=== PATIENT | male | born 2000 | race Caucasian/White ===

== ENCOUNTER 2018-01-30 19:46 | Observation (INO) | payer BC ==
[2018-01-30] MEDS ORDERED: ONDANSETRON HCL IV 4 MG/2 ML VIAL IVP ONE ×2 (21:02→22:20)
[2018-01-30] MEDS ORDERED: 0.9 % SODIUM CHLORIDE 1,000 ML BAG IV ONE (21:02)
[2018-01-30] MEDS ORDERED: KETOROLAC 30 MG/ML VIAL IVP ONE (21:02)
[2018-01-30 21:04] LABS: HEMATOCRIT 44.9 % (42.0-52.0); HEMOGLOBIN 15.4 gm/dl (14.0-18.0); MEAN CELL VOLUME 86.2 fl (81-97); MEAN CORPUSCULAR HEMOGLOBIN 29.6 pg (27-33); MEAN CORPUSCULAR HGB CONC 34.3 g/dl (32-36); MEAN PLATELET VOLUME 9.7 fl (7.4-10.4); PLATELET COUNT 352 K/uL (130-400); RED BLOOD COUNT 5.21 M/uL (4.40-5.70); RED CELL DISTRIBUTION WIDTH 13.3 % (11.5-14.5); URINE APPEARANCE CLEAR; URINE BILIRUBIN NEGATIVE (NEGATIVE); URINE BLOOD NEGATIVE (NEGATIVE); URINE COLOR YELLOW; URINE GLUCOSE (UA) NEGATIVE (NEGATIVE); URINE KETONE NEGATIVE (NEGATIVE); URINE LEUKOCYTE ESTERASE NEGATIVE (NEGATIVE); URINE NITRITE NEGATIVE (NEGATIVE); URINE PROTEIN NEGATIVE (NEGATIVE); URINE UROBILINOGEN 0.2 E.U./dL (0.20 - 1.00); WHITE BLOOD COUNT W/O DIFF 19.3 K/uL (4.2-12.2)
--- NOTE | 2018-01-30 21:06 | Emergency Department Record ---
History of Present Illness - General Chief Complaint: Abdominal Pain Stated Complaint: LOWER RT ABDOMINAL PAIN Time Seen by Provider: 01/30/18 21:00 Source: Patient Mode of Arrival: Ambulatory Limitations: No limitations - History of Present Illness Initial Comments: The patient is here due to the acute onset of RLQ AP which started about 4 hours ago. The pain was mild initially but now is sharp and crampy and is associated with nausea but no vomiting. The patient denies any hx of similar issues or problems. He denies any back pain, dysuria, fever, or chills. MD Complaint: Abdominal pain Onset/Timin -: Hour(s) Location: Diffuse, RLQ Radiation: None Migration to: No migration Severity: Moderate Severity scale (1-10): 8 Quality: Sharp Consistency: Constant Improves With: Nothing Worsens With: Movement Associated Symptoms: Denies other symptoms Treatments Prior to Arrival: Antacids - Related Data Home Medications Medication Instructions Recorded Confirmed Last Taken Cyproheptadine HCl 8 mg PO BID 01/30/18 01/30/18 Unknown Escitalopram Oxalate [Lexapro] 20 mg PO DAILY 01/30/18 01/30/18 Unknown Allergies Allergy/AdvReac Type Severity Reaction Status Date / Time Sulfa (Sulfonamide Allergy HIVES Verified 01/30/18 20:43 Antibiotics) Travel Screening - Travel/Exposure Within Last 30 Days Have you traveled within the last 30 days?: No - Travel/Exposure Within Last Year Have you traveled outside the [place] in the last year?: No - Additonal Travel Details Have you been exposed to anyone with a communicable illness?: No - Travel Symptoms Symptom Screening: None Review of Systems Constitutional: Denies: Chills, Fever Eyes: Denies: Eye discharge ENT: Denies: Congestion Respiratory: Denies: Cough, Dyspnea Past Medical History - SOCIAL HISTORY Smoking Status: Never smoker Alcohol Use: None Drug Use: None - RESPIRATORY Hx Respiratory Disorders: Yes Hx Asthma: Yes - CARDIOVASCULAR Hx Cardio Disorders: No - NEURO Hx Neuro Disorders: No - GI Hx GI Disorders: No - Hx Genitourinary Disorders: No - ENDOCRINE Hx Endocrine Disorders: No - MUSCULOSKELETAL Hx Musculoskeletal Disorders: No - PSYCH Hx Psych Problems: Yes Hx Anxiety: Yes - HEMATOLOGY/ONCOLOGY Hx Hematology/Oncology Disorders: No Family Medical History Any Significant Family History?: No Physical Exam - General General Appearance: Alert, Oriented x3, Cooperative, No acute distress - Head Head exam: Atraumatic, Normocephalic, Normal inspection - Eye Eye exam: Normal appearance, PERRL - Neck Neck exam: Normal inspection, Full ROM. negative: Tenderness - Respiratory Respiratory exam: Normal lung sounds bilaterally. negative: Respiratory distress - Cardiovascular Cardiovascular Exam: Regular rate, Normal rhythm, Normal heart sounds - GI/Abdominal GI/Abdominal exam: Soft, Normal bowel sounds, Guarding, Tenderness (There is significant RLQ tenderness with guarding.). negative: Mass, Rebound, Rigid - Extremities Extremities exam: Normal inspection, Full ROM, Normal capillary refill. negative: Tenderness - Neurological Neurological exam: Alert. negative: Motor sensory deficit Course Vital Signs 01/30/18 20:35 Temperature 97.8 F Pulse Rate 67 Respiratory 20 Rate Blood Pressure 108/73 Pulse Ox 100 - Reevaluation(s) Reevaluation #1: The patient is doing a lot better but does still have the pain. I did explain to him that it appears he has early appendicitis. Due to that fact we will admit him here overnight to Dr. He for surgery tomorrow. I did discuss the case with Dr. He and he does agree to the plan. 01/30/18 21:52 Medical Decision Making - Data Complexity MDM Data: Labs Ordered and/or Reviewed, X-Ray Ordered and/or Reviewed - Lab Data Result diagrams: 01/30/18 21:01 01/30/18 21:01 - Radiology Data Radiology results: Report reviewed (Abd CT: Appendix borderline enlarged with multiple appendicoliths present.) Disposition Disposition: Admit Clinical Impression: Appendicitis Qualifiers: Appendicitis type: acute appendicitis Acute appendicitis type: unspecified acute appendicitis type Qualified Code(s): K35.80 - Unspecified acute appendicitis Disposition: Still a Patient at [facility] Decision to Admit: Admit from ER Decision to Admit Date: 01/30/18 Decision to Admit Time: 21:54 Accepting Physician: Ying Time Discussed w/Accepting Physician: 21:54 Condition: (2) Stable Time of Disposition: 21:54 Quality - Quality Measures Quality Measures: N/A - Blood Pressure Screening View Details: Yes Does Patient Have Any of the Following: No Blood Pressure Classification: Pre-Hypertensive BP Reading Systolic Measurement: 120 Diastolic Measurement: 74 Screening for High Blood Pressure: < Pre-Hypertensive BP, F/U Documented > [ [id number]] Pre-Hypertensive Follow-up Interventions: Referral to alternative/primary care provider.
[2018-01-30 21:12] LABS: BLOOD UREA NITROGEN 18 mg/dL (6-20); CREATININE 0.9 mg/dL (0.7-1.2)
[2018-01-30 21:15] LABS: GLUCOSE,RANDOM 113 mg/dL (74-109)
[2018-01-30] MEDS ORDERED: ERTAPENEM SODIUM 1 G in 0.9 % SODIUM CHLORIDE 100ML 100 ML IVPB ONE (21:49)
[2018-01-30] MEDS ORDERED: SUGAMMADEX SODIUM 200 MG/2 ML VIAL IV ONE (22:20)
[2018-01-30] MEDS ORDERED: FENTANYL PF 100MCG/2ML VIAL IV ONE ×2 (22:20)
[2018-01-30] MEDS ORDERED: LIDOCAINE 2% MDV (20MG/ML) 20ML VIAL IV ONE (22:20)
[2018-01-30] MEDS ORDERED: ACETAMINOPHEN 1,000 MG/100 ML BTL IV ONE (22:20)
[2018-01-30] MEDS ORDERED: SCOPOLAMINE 1 PATCH TDSY TD ONE (22:20)
[2018-01-30] MEDS ORDERED: METOCLOPRAMIDE 10 MG TABLET PO ONE (22:20)
[2018-01-30] MEDS ORDERED: ROCURONIUM BROMIDE 50MG/5ML VIAL IV ONE (22:20)
[2018-01-30] MEDS ORDERED: PROPOFOL 10 MG/ML VIAL IV ONE (22:20)
[2018-01-30] MEDS ORDERED: DEXAMETHASONE 4 MG/ML 1ML VIAL IVP ONE (22:20)
[2018-01-30] MEDS ORDERED: MIDAZOLAM HCL 2MG/2ML VIAL IV ONE (22:20)
[2018-01-30] MEDS ORDERED: MECLIZINE 25 MG TABLET PO ONE (22:20)
[2018-01-30] MEDS ORDERED: HYDROCORTISONE 100MG/VIAL IVP ONE (22:20)
[2018-01-30] MEDS ORDERED: BUPIVACAINE 0.25% W/EPI MPF 30ML VIAL IVP ONE (22:20)
[2018-01-30] MEDS ORDERED: *PACU ONLY* KETAMINE HCL 10 MG/ML (20ML) VIAL IV ONE (22:20)
[2018-01-30] MEDS ORDERED: ALBUTEROL SULFATE (0.083%) 2.5 MG/3 ML NEB INH ONE (22:20)
[2018-01-30] MEDS ORDERED: FAMOTIDINE 20MG TABLET PO ONE (22:20)
[2018-01-30] MEDS ORDERED: SEVOFLURANE 250 ML INH ONE (22:20)
[2018-01-30] MEDS ORDERED: 0.9 % SODIUM CHLORIDE 1000ML 1,000 ML IV PRN (22:21)
[2018-01-30] MEDS ORDERED: ONDANSETRON HCL IV 4 MG/2 ML VIAL IVP PRN (22:21)
[2018-01-30] MEDS: HYDROMORPHONE HCL 2 MG/ML VIAL IV PRN (23:56)
[2018-01-31] MEDS: HYDROMORPHONE HCL 2 MG/ML VIAL IV PRN (04:04)
--- NOTE | 2018-01-31 07:24 | CT SCAN REPORT ---
EXAM: CT OF THE ABDOMEN AND PELVIS WITHOUT CONTRAST HISTORY: LOWER RIGHT ABDOMINAL PAIN FOR THREE TO FOUR HOURS. TECHNIQUE: Routine noncontrast CT images of the abdomen and pelvis were obtained. FINDINGS: The visualized lung bases are unremarkable. The liver, gallbladder, pancreas, spleen and adrenal glands have a normal noncontrast appearance. No renal or ureteral calculi or hydronephrosis. Please note portions of the ureters are obscured by overlapping structures. The bowel is normal in caliber. The appendix is seen. It demonstrates high densities in the lumen most consistent with multiple appendicoliths. Appendix is borderline prominent measuring 7 mm in caliber though no surrounding inflammatory change. Early acute appendicitis should be considered in the appropriate clinical setting. The bladder is unremarkable. No abdominal or pelvic lymphadenopathy. No free air or free fluid. The abdominal wall soft tissues are unremarkable. No acute osseous abnormality. IMPRESSION: THE APPENDIX IS BORDERLINE ENLARGED MEASURING 7 MM IN CALIBER AND DEMONSTRATES APPENDICOLITHS. WHILE THERE IS NO SURROUNDING INFLAMMATORY CHANGE, IT WOULD BE DIFFICULT TO COMPLETELY EXCLUDE EARLY ACUTE APPENDICITIS IN THE APPROPRIATE CLINICAL SETTING. JOB NUMBER: [id number] [facility]
[2018-01-31] MEDS ORDERED: METOCLOPRAMIDE HCL 10 MG/2 ML VIAL IVP PRN (13:00)
[2018-01-31] MEDS ORDERED: MORPHINE SULFATE 4MG/ML PREFILLED SYRINGE IVP PRN (13:00)
[2018-01-31] MEDS: HYDROCODONE/APAP 5/325MG TABLET PO PRN ×3 (13:25→19:50)
[2018-01-31] MEDS: PANTOPRAZOLE SODIUM IV 40 MG VIAL IV SCH (13:29)
[2018-01-31] MEDS: CEFTRIAXONE SODIUM 1 GM in 0.9 % SODIUM CHLORIDE 100ML 100 ML IVPB SCH (17:58)
[2018-01-31] MEDS ORDERED: AZITHROMYCIN 500 MG TABLET PO SCH (18:00)
[2018-01-31] MEDS ORDERED: IPRATROPIUM/ALBUTEROL (0.5MG/3MG) NEB INH PRN (21:50)
[2018-01-31] MEDS: CYPROHEPTADINE 4 MG PO SCH (21:52)
[2018-01-31] MEDS ORDERED: TOPIRAMATE 25MG TABLET PO SCH (22:00)
[2018-02-01] MEDS: HYDROCODONE/APAP 5/325MG TABLET PO PRN ×3 (01:19→10:47)
[2018-02-01] MEDS: CEFTRIAXONE SODIUM 1 GM in 0.9 % SODIUM CHLORIDE 100ML 100 ML IVPB SCH (06:10)
[2018-02-01 06:26] LABS: BASO % 0.1 % (0-6); EOS % 0.4 % (0-6); HEMATOCRIT 42.8 % (42.0-52.0); HEMOGLOBIN 14.5 gm/dl (14.0-18.0); LYMPH % 24.5 % (16-45); MEAN CELL VOLUME 86.6 fl (81-97); MEAN CORPUSCULAR HEMOGLOBIN 29.4 pg (27-33); MEAN CORPUSCULAR HGB CONC 33.9 g/dl (32-36); MEAN PLATELET VOLUME 9.6 fl (7.4-10.4); PLATELET COUNT 316 K/uL (130-400); RED BLOOD COUNT 4.94 M/uL (4.40-5.70); RED CELL DISTRIBUTION WIDTH 13.4 % (11.5-14.5); WHITE BLOOD COUNT W/O DIFF 11.7 K/uL (4.2-12.2)
[2018-02-01 06:38] LABS: BLOOD UREA NITROGEN 8 mg/dL (6-20); CREATININE 0.8 mg/dL (0.7-1.2); GLUCOSE,RANDOM 103 mg/dL (74-109)
--- NOTE | 2018-02-01 07:27 | RADIOLOGY REPORT ---
EXAM: CHEST, TWO VIEWS HISTORY: CHEST PAIN. TECHNIQUE: Frontal and lateral views of the chest were obtained. Comparison: None. FINDINGS: The heart size is normal. Bilateral perihilar air space opacities worrisome for pneumonia. No discreet pneumothorax. The patient is status post recent appendectomy. Trace of free air under the right hemidiaphragm is likely postoperative in nature. IMPRESSION: 1. BILATERAL PERIHILAR PNEUMONIA. 2. MINIMAL RESIDUAL FREE AIR UNDER RIGHT HEMIDIAPHRAGM. JOB NUMBER: [id number] [facility]
[2018-02-01] MEDS: PANTOPRAZOLE SODIUM IV 40 MG VIAL IV SCH (09:50)
[2018-02-01] MEDS ORDERED: ESCITALOPRAM 10 MG TABLET PO SCH (10:00)
--- NOTE | 2018-02-01 10:01 | Operative Note ---
DATE OF SURGERY: 01/31/2018 Surgeon: Matty He DO PREOPERATIVE DIAGNOSIS: Acute appendicitis. POSTOPERATIVE DIAGNOSIS: Acute appendicitis. OPERATION: Laparoscopic appendectomy. Indication: The patient is a 17-year-old male who came to the hospital last night with abdominal pain. This did settle in his right lower quadrant. CT scan did show findings consistent with acute appendicitis. His clinically exam fit the same. We did discuss appendectomy. Risks, benefits, and alternatives were discussed. Risks include bleeding, infection, postop abscess formation. He understood this fully. Thereafter, consent was signed and questions answered. PROCEDURE: He was taken to the operating room and placed in the supine position. General anesthesia was administered per department of anesthesia. The patient's abdomen was prepped in the usual fashion. His left arm was tucked to the side. At this time, adequate timeout was performed. He did receive preoperative antibiotics as well as DVT prophylaxis. The infraumbilical region was then anesthetized with a total of 5 mL of 0.25% Sensorcaine with epinephrine. A 2 cm infraumbilical incision was made. This was carried down to the anterior rectus fascia. This was incised. Luis Manuel clamps were placed on the fascial edges and brought up into the wound. Stay sutures of 0 Vicryl were placed. Posterior rectus sheath was identified and incised. The peritoneal cavity was entered bluntly. At this time, a 10 mm blunt Josué port was placed. Adequate pneumoperitoneum established. Under direct visualization, additional 5 mm right subcostal and 5 mm suprapubic ports were placed. The appendix was located in the right mid abdomen. It was noted to be dilated and inflamed consistent with acute appendicitis. The patient also had some purulent fluid in the pelvis. There was no evidence of rupture, abscess, or other. At this time, the appendix was lifted anteriorly. The mesoappendix was taken down serially with the Teofilo harmonic. Once the appendiceal base was reached, it was transected with an Endo-MARQUEZ stapling device. This was then placed in the EndoCatch bag and brought out infraumbilically. The right lower quadrant and pelvis were then irrigated with approximately 500 mL of sterile saline. There was no bleeding noted. Staple line looks great. All the purulent fluid was suctioned free. There was really no other pathology I could see after examining the small and large bowel, liver, gallbladder, and stomach. At this time, the patient was leveled out and pneumoperitoneum was released. All ports were removed. The fascia was closed with 0 Vicryl in a [id number] fashion. The skin of all 3 ports was closed with 4-0 Vicryl. He was taken to the recovery room in satisfactory condition. FINDINGS ON SURGERY: Acute appendicitis. CC: Rodrigo JUAREZ
[2018-02-01] MEDS: CYPROHEPTADINE 4 MG PO SCH (10:17)
--- NOTE | 2018-02-01 10:31 | Consult ---
Consult Order Detail - Reason for Consult Consult Date: 02/01/18 - Chief Complaint Chief Complaint: APPENDICITIS HPI Consult - History of Present Illness Admitting Diagnosis: 1. Acute Appendicitis History of Present Illness: Mr. Munoz is a 17 y/o male admitted with right lower quadrant pain and was found to have acute appendicitis on CT. The patient is status post laprascopic appendectomy yesterday. The patient was intubated for the procedure and after extubation was noted to be coughing up sputum with bright red blood. The patient 's sputum production has now decreased but he still has some blood which is now a darker red aand he complains of throat pain. Post procedure chest xray showed bilateral perihilar pneumonia but the patient has no respiratory difficulty and he is maintaining saturations without supplemental oxygen. He denies chest pain , congestion, headaches, fever or chills. Medicine was consulted for management of the patient's pneumonia. ROS Reviewed: No additional complaints except as noted below Constitutional: Denies: Chills, Fever Eyes: Denies: Eye discharge - ENT ENT: Denies: Congestion - Respiratory Respiratory: Denies: Cough, Dyspnea - Cardiovascular Cardiovascular: Reports: As per HPI. Denies: Arrhythmia, Chest pain, Dyspnea on exertion, Edema, Murmurs, Orthopnea, Palpitations, Paroxysmal nocturnal dyspnea, Rheumatic Fever, Syncope - Gastrointestinal Gastrointestinal: Reports: As per HPI. Denies: Abdominal pain, Constipation, Diarrhea, Hematemesis, Hematochezia, Melena, Nausea, Vomiting - Genitourinary Genitourinary: Reports: As per HPI. Denies: Discharge, Dysuria, Frequency, Hematuria, Incontinence, Retention, Testicular pain, Testicular mass, Urgency - Musculoskeletal Musculoskeletal: Reports: As per HPI. Denies: Arthralgia, Back pain, Gout, Joint swelling, Myalgia, Neck pain - Neurological Neurological: Reports: As per HPI. Denies: Abnormal gait, Confusion, Headache, Numbness, Paresthesias, Seizure, Tingling, Tremors, Vertigo, Weakness Past Medical History - SOCIAL HISTORY Smoking Status: Never smoker Alcohol Use: None - RESPIRATORY Hx Respiratory Disorders: Yes Hx Asthma: Yes (well controlled) - CARDIOVASCULAR Hx Cardio Disorders: No - NEURO Hx Neuro Disorders: No - GI Hx GI Disorders: No - Hx Genitourinary Disorders: No - ENDOCRINE Hx Endocrine Disorders: No - MUSCULOSKELETAL Hx Musculoskeletal Disorders: No - PSYCH Hx Psych Problems: Yes Hx Anxiety: Yes - HEMATOLOGY/ONCOLOGY Hx Hematology/Oncology Disorders: No Family Medical History Any Significant Family History?: No H&P Meds - Home Medications and Allergies Home Medications Medication Instructions Recorded Confirmed Last Taken Cyproheptadine HCl 8 mg PO BID 01/30/18 01/30/18 Unknown Escitalopram Oxalate [Lexapro] 20 mg PO DAILY 01/30/18 01/30/18 Unknown Allergies Allergy/AdvReac Type Severity Reaction Status Date / Time Sulfa (Sulfonamide Allergy HIVES Verified 01/30/18 20:43 Antibiotics) Physical Exam - Vital Signs Vital Signs: Vital Signs - Last 24 Hrs Temp Pulse Resp BP Pulse Ox 02/01/18 08:11 97.7 F 79 16 117/70 97 02/01/18 07:45 16 02/01/18 05:00 97.8 F 77 16 99/55 95 02/01/18 01:00 98.1 F 102 H 16 110/73 96 01/31/18 21:00 97.4 F L 97 H 17 129/70 97 01/31/18 20:55 97 H 16 01/31/18 17:47 98.9 F 109 H 18 124/62 95 01/31/18 16:00 97.9 F 96 H 16 114/59 95 01/31/18 13:30 110 H 16 111/65 93 L 01/31/18 12:00 108 H 16 113/72 95 01/31/18 11:30 112 H 18 119/68 95 01/31/18 11:15 108 H 16 110/67 95 01/31/18 11:05 94 H 16 110/58 97 01/31/18 10:45 97.7 F 109 H 18 127/80 95 - General General Appearance: Alert, Oriented x3, Cooperative, No acute distress Limitations: No limitations - Head Head exam: Atraumatic, Normocephalic, Normal inspection - Eye Eye exam: Normal appearance, PERRL - Neck Neck exam: Normal inspection, Full ROM. negative: Tenderness - Respiratory Respiratory exam: Normal lung sounds bilaterally. negative: Respiratory distress - Cardiovascular Cardiovascular Exam: Regular rate, Normal rhythm, Normal heart sounds Peripheral Pulses: 3+: Radial (R), Radial (L), Dorsalis Pedis (R), Dorsalis Pedis (L) - GI/Abdominal GI/Abdominal exam: Soft, Normal bowel sounds, Guarding, Tenderness (There is significant RLQ tenderness with guarding.). negative: Mass, Rebound, Rigid - Extremities Extremities exam: Normal inspection, Full ROM, Normal capillary refill. negative: Tenderness - Neurological Neurological exam: Alert. negative: Motor sensory deficit Results - Labs Result Diagrams: 02/01/18 06:16 02/01/18 06:16 Labs Last 24 Hours: Laboratory Results - last 24 hr 02/01/18 02/01/18 06:16 06:16 WBC 11.7 RBC 4.94 Hgb 14.5 Hct 42.8 MCV 86.6 MCH 29.4 MCHC 33.9 RDW 13.4 Plt Count 316 MPV 9.6 Gran % 67.0 Lymphocytes % 24.5 Monocytes % 8.0 Eosinophils % 0.4 Basophils % 0.1 Sodium 145 Potassium 3.7 Chloride 104 Carbon Dioxide 27.0 Anion Gap 14.0 BUN 8 Creatinine 0.8 Estimated GFR TNP Random Glucose 103 Calcium 9.3 Assessment and Plan - Assessment and Plan (1) Aspiration pneumonitis Current Visit: Yes Status: Acute Base Code: J69.0 - PNEUMONITIS DUE TO INHALATION OF FOOD AND VOMIT Comment: The chest xray shows bilateral infilitrates of the hilar region. This likely represents a pneumonitis secondary aspiration as a result of intubation. We will continue with IV Rocephin/Zithormax for now and will consider adding Clindamycin IV. The patient has no respiratory compromise and is not requiring any supplemental oxygen or respiratory therapy. The patient is afebrile, not tachycardic and there is no indication that this is bacterial infection based on the white count. We would recommend keeping the antibiotics and changing to PO at discharge for and additional 5 days. Repeat chest xray in 1-2 weeks. (2) Appendicitis Current Visit: Yes Status: Acute Qualifiers: Appendicitis type: acute appendicitis Acute appendicitis type: unspecified acute appendicitis type Qualified Code(s): K35.80 - Unspecified acute appendicitis Base Code: K37 - UNSPECIFIED APPENDICITIS Comment: -s/p laparascopic appendectomy 01/31. - cont pain management and IV Zofran/Reglan s per surgery. (3) Migraines Current Visit: Yes Status: Acute Base Code: G43.909 - MIGRAINE, UNSP, NOT INTRACTABLE, WITHOUT STATUS MIGRAINOSUS Comment: - Resume home doses of cyproheptadine 4mg BID and Topomax 50mg QD (4) DVT prophylaxis Current Visit: Yes Status: Acute Base Code: [id number] - Comment: - No prohylaxis required. - Patient is ambulatory and has low risk of DVTs.
== END 2018-02-01 14:06 | disposition home or self-care (01) ==
LOC: ER 19:46 → MEDSURG 22:19
PROVIDERS: ADMIT Surgery; ATTEND Surgery
DX: K35.80 Unspecified acute appendicitis (principal); J45.909 Unspecified asthma, uncomplicated
CPT/HCPCS: 44970; 00840; 99285 ×2; 96365; 96375; 85025; 80048 ×2; 81003; 85027; 71046; 74176; G0378 ×3; J1335; J1885; J2405; J3010; J1170 ×2; J3490 ×2; C9113; J1720; J7030; J7613